=== PATIENT | male | born 1935 | race Caucasian/White ===

== ENCOUNTER 2016-11-16 09:45 | Emergency (ER) | payer BC, OTHER ==
[~2016-11-16] VITALS: Ht 177.8 cm; Wt 54.4 kg
[~2016-11-16 09:45] MED LIST: ASPI-482 PO; ESOM40CA PO; FERR-26 PO; INSU100C SQ; INSU100I27 SQ; INSU100V13 SQ; LEVO25TA4 PO; LITH150C PO; LITH300T3 PO; METF500T4 PO; OXCA300T PO; OXCA600T PO; SIMV40TA3 PO
--- NOTE | 2016-11-16 10:18 | PHYS DOC ---
Past Medical History Past Medical History: Bipolar, Diabetes-Type II, GERD, High Cholesterol, Hypertension Additional Past Medical Histor: osteoarthritis, iron deficiency Past Surgical History: No Surgical History Additional Information: Quit smoking 20 years ago Alcohol Use: None Drug Use: None Adult General Chief Complaint Chief Complaint: LACERATION/AVULSION HPI HPI Patient is a 81 year old male who lives had [facility] with a history of dementia, hypertension, and diabetes presents to the ED complaining of head injury times one hour ago. Patient was sitting and eating breakfast with his legs crossed and states one of his legs fell asleep and when he went to stand up he fell and hit the ground. Witnessed fall by staff. Patient does not take any blood thinners. Patient and state he has had previous episodes of times that his leg has fallen asleep in the past and he has fallen. Denies symptoms prior to fall, LOC, vision changes, nausea/ vomiting, chest pain, dizziness, weakness, syncope, or fever. Review of Systems Review of Systems Constitutional: Denies fever or chills [] Eyes: Denies change in visual acuity, redness, or eye pain [] HENT: Denies nasal congestion or sore throat [] Respiratory: Denies cough or shortness of breath [] Cardiovascular: No additional information not addressed in HPI [] GI: Denies abdominal pain, nausea, vomiting, bloody stools or diarrhea [] : Denies dysuria or hematuria [] Musculoskeletal: Denies back pain or joint pain [] Integument: Denies rash or skin lesions [] Neurologic: Denies headache, focal weakness or sensory changes [] Endocrine: Denies polyuria or polydipsia [] Current Medications Current Medications Current Medications Medications (Trade) Dose Ordered Sig/[place] Start Time Stop Time Status Last Admin Dose Admin Diphtheria/ Tetanus/Acell Pertussis (Boostrix) 0.5 ml ONCE ONCE 11/16/16 10:30 11/16/16 10:31 DC Lidocaine HCl 20 ml 1X ONCE 11/16/16 10:30 11/16/16 10:31 DC 11/16/16 10:28 20 ML Allergies Allergies Allergies Coded Allergies Type Severity Reaction Last Updated Verified No Known Drug Allergies 11/18/15 No Physical Exam Physical Exam Constitutional: Well developed, well nourished, no acute distress, non-toxic appearance. [] HENT: 3 CM LACERATION TO LEFT PERIORBITAL REGION. Normocephalic, bilateral external ears normal, oropharynx moist, no oral exudates, nose normal. [] Eyes: PERRLA, EOMI, conjunctiva normal, no discharge. [] Neck: Normal range of motion, no tenderness, supple, no stridor. [] Cardiovascular:Heart rate regular rhythm, no murmur [] Lungs & Thorax: Bilateral breath sounds clear to auscultation [] Abdomen: Bowel sounds normal, soft, no tenderness, no masses, no pulsatile masses. [] Skin: Warm, dry, no erythema, no rash. [] Back: No tenderness, no CVA tenderness. [] Extremities: No tenderness, no cyanosis, no clubbing, ROM intact, no edema. [] Neurologic: Alert and oriented X 3, normal motor function, normal sensory function, no focal deficits noted. [] Psychologic: Affect normal, judgement normal, mood normal. [] Current Patient Data Vital Signs Vital Signs Date Time Temp Pulse Resp B/P (MAP) Pulse Ox O2 Delivery O2 Flow Rate FiO2 11/16/16 14:18 50 18 106/33 (57) 97 Room Air 11/16/16 09:56 97.6 97.6 Lab Values Laboratory Tests Test 11/16/16 10:55 White Blood Count 6.3 x10^3/uL (4.0-11.0) Red Blood Count 3.51 x10^6/uL (4.30-5.70) L Hemoglobin 11.3 g/dL (13.0-17.5) L Hematocrit 33.3 % (39.0-53.0) L Mean Corpuscular Volume 95 fL (79-100) Mean Corpuscular Hemoglobin 32 pg (25-35) Mean Corpuscular Hemoglobin Concent 34 g/dL (31-37) Red Cell Distribution Width 13.3 % (11.5-14.5) Platelet Count 234 x10^3/uL (140-400) Sodium Level 142 mmol/L (136-145) Potassium Level 3.7 mmol/L (3.5-5.1) Chloride Level 105 mmol/L (98-107) Carbon Dioxide Level 29 mmol/L (21-32) Anion Gap 8 (6-14) Blood Urea Nitrogen 21 mg/dL (8-26) Creatinine 1.0 mg/dL (0.7-1.3) Estimated GFR (Cockcroft-Gault) 71.9 BUN/Creatinine Ratio 21 (6-20) H Glucose Level 132 mg/dL (70-99) H Calcium Level 9.6 mg/dL (8.5-10.1) Total Bilirubin 0.4 mg/dL (0.2-1.0) Aspartate Amino Transferase (AST) 11 U/L (15-37) L Alanine Aminotransferase (ALT) 12 U/L (16-63) L Alkaline Phosphatase 47 U/L (46-116) Total Protein 6.7 g/dL (6.4-8.2) Albumin 3.5 g/dL (3.4-5.0) Albumin/Globulin Ratio 1.1 (1.0-1.7) Laboratory Tests 11/16/16 10:55 Laboratory Tests 11/16/16 10:55 EKG EKG [] Radiology/Procedures Radiology/Procedures PROCEDURE: CT HEAD AND CERVICAL SPINE WO CT head Indication: Head injury, neck pain status post fall Technique: CT head without IV contrast Comparison: CT head from 11/18/2015 Findings: No pathologic extra-axial or intra-axial fluid collection. Mild diffuse cerebral and cerebellar atrophy with ex vacuo dilation of the ventricles. No acute intracranial bleed. No focal loss of tapia-white differentiation. Mild bilateral cavernous carotid artery calcifications. No calvarial fractures. Focus of air is seen within the anterior aspect of the left eye. There is complete opacification of the right frontal sinus. Patchy opacification of the ethmoid air cells. There is partial opacification of the left mastoid air cells. Soft tissue swelling noted with mild emphysema along the lateral aspect of the left orbit. Impression: 1. No acute intracranial findings. 2. Small focus of air within anterior aspect of the left eye. Clinically correlate. 3. Soft tissue swelling with emphysema lateral to the left orbit superior to zygoma. 4. Findings of chronic sinus disease involving right frontal sinuses, ethmoid air cells and left mastoid air cells. CT cervical spine Indication: As above. Technique: CT of the cervical spine without IV contrast with multi planar reformats. Comparison: None Findings: Cervical spine demonstrates straightening. This could be due to muscle spasm or positioning. No compression deformities. Predental interval is preserved. No acute fractures. Multilevel intervertebral disc space narrowing with large anterior osteophytes compatible with advanced degenerative disc disease. The facet joints are in normal anatomic alignment with mild to moderate facet arthropathy. The prevertebral soft tissues are within normal limits. No bulky cervical adenopathy. Mild atherosclerotic disease at the carotid bulb bilaterally. Visualized lung bases are clear. Impression: 1. No acute fractures of the cervical spine. 2. Multilevel degenerative disc disease with facet arthropathy.[] PROCEDURE: CT MAXILLOFACIAL WO CONTRAST Maxillofacial CT Indication: Trauma Technique: CT of the maxillofacial bones without IV contrast with multiplanar reformats. Comparison: None Findings: No acute fractures. Soft tissue swelling with emphysema is seen superior to the left side,. Small amount of air is seen in the superior aspect of the left globe. There is no preseptal or postseptal soft tissue swelling or hematoma. The temporomandibular joints and mandible are within normal limits. There is complete opacification of the right frontal sinus. Patchy opacification of the ethmoid air cells. Mild periosteal thickening noted of the inferior aspect of the right maxillary sinus. Mild bilateral atherosclerotic disease of the cavernous carotid arteries. Left revision of the anterior nasal septum. Impression: 1. No acute fractures. 2. Soft tissue swelling and emphysema superior to the left side zygoma. 3. Small amount of air within superior aspect of the left globe. Clinically correlate. 4. Chronic sinus disease involving the right frontal sinuses and ethmoid air cells. Course & Med Decision Making Course & Med Decision Making Pertinent Labs and Imaging studies reviewed. (See chart for details) []Laceration repaired. No complications. Patient's tetanus up-to-date. Discussed labs and imaging with patient. Patient's pain improved. Vital stable, no acute distress. Discussed case with on-call ophthalmology, Dr. Gonzales. States he will follow-up outpatient with Mr. Ingram. States he goes to [facility] where patient lives. No fracture on CT or signs of globe rupture on exam. No pain on exam and FROM/EOMI. Discussed follow-up for wound reevaluation and couple days and wound care outpatient. Discussed reasons to return to the ED with electromechanical engineer and family. Patient, family and electromechanical engineer understand and agree with plan. Dragon Disclaimer Dragon Disclaimer This electronic medical record was generated, in whole or in part, using a voice recognition dictation system. Departure Departure Impression: Primary Impression: Closed head injury Additional Impression: Facial laceration Disposition: 01 HOME, SELF-CARE Condition: IMPROVED Referrals: DIONNE GREGORIO MD (PCP) DOROTEO GONZALES MD Patient Instructions: Facial Laceration, Head Injury, Adult Laceration/Wound Repair Laceration/Wound Repair : Wound Location: face (left supra-zygoma) Wound's Depth, Shape: superficial Wound Length (cm): 3 Betadine Prep?: Yes Anesthesia: 1% Lidocaine Volume Anesthetic (ccs): 5 Wound Repaired With: sutures Suture Size/Type: 5:0, nylon Number of Sutures: 7 Sterile Dressing Applied?: Yes Progress Laceration repaired, No complications. Problem Qualifiers LUZ HUSAIN Nov 16, 2016 10:18
[2016-11-16] MEDS ORDERED: DIPHTH,PERTUSS(ACELL),TET TOX 0.5 ML DISP.SYRIN. VAX IM ONE (10:30)
[2016-11-16] MEDS ORDERED: LIDOCAINE 2% 20 ML VIAL. IJ ONE (10:30)
[2016-11-16 11:09] LABS: HEMATOCRIT 33.3 % (39.0-53.0); HEMOGLOBIN 11.3 g/dL (13.0-17.5); RED BLOOD COUNT 3.51 x10^6/uL (4.30-5.70); RED CELL DISTRIBUTION WIDTH 13.3 % (11.5-14.5); WHITE BLOOD COUNT 6.3 x10^3/uL (4.0-11.0)
[2016-11-16 11:20] LABS: CALCIUM 9.6 mg/dL (8.5-10.1); GFR 71.9; POTASSIUM 3.7 mmol/L (3.5-5.1)
[2016-11-16 11:26] LABS: ALBUMIN 3.5 g/dL (3.4-5.0); ALBUMIN/GLOBULIN RATIO 1.1 (1.0-1.7); TOTAL BILIRUBIN 0.4 mg/dL (0.2-1.0); TOTAL PROTEIN 6.7 g/dL (6.4-8.2)
--- NOTE | 2016-11-16 12:14 | RAD ---
CT head Indication: Head injury, neck pain status post fall Technique: CT head without IV contrast Comparison: CT head from 11/18/2015 Findings: No pathologic extra-axial or intra-axial fluid collection. Mild diffuse cerebral and cerebellar atrophy with ex vacuo dilation of the ventricles. No acute intracranial bleed. No focal loss of tapia-white differentiation. Mild bilateral cavernous carotid artery calcifications. No calvarial fractures. Focus of air is seen within the anterior aspect of the left eye. There is complete opacification of the right frontal sinus. Patchy opacification of the ethmoid air cells. There is partial opacification of the left mastoid air cells. Soft tissue swelling noted with mild emphysema along the lateral aspect of the left orbit. Impression: 1. No acute intracranial findings. 2. Small focus of air within anterior aspect of the left eye. Clinically correlate. 3. Soft tissue swelling with emphysema lateral to the left orbit superior to zygoma. 4. Findings of chronic sinus disease involving right frontal sinuses, ethmoid air cells and left mastoid air cells. CT cervical spine Indication: As above. Technique: CT of the cervical spine without IV contrast with multi planar reformats. Comparison: None Findings: Cervical spine demonstrates straightening. This could be due to muscle spasm or positioning. No compression deformities. Predental interval is preserved. No acute fractures. Multilevel intervertebral disc space narrowing with large anterior osteophytes compatible with advanced degenerative disc disease. The facet joints are in normal anatomic alignment with mild to moderate facet arthropathy. The prevertebral soft tissues are within normal limits. No bulky cervical adenopathy. Mild atherosclerotic disease at the carotid bulb bilaterally. Visualized lung bases are clear. Impression: 1. No acute fractures of the cervical spine. 2. Multilevel degenerative disc disease with facet arthropathy. PQRS Compliance Statement: One or more of the following individualized dose reduction techniques were utilized for this examination: 1. Automated exposure control 2. Adjustment of the mA and/or kV according to patient size 3. Use of iterative reconstruction technique
--- NOTE | 2016-11-16 12:29 | RAD ---
Maxillofacial CT Indication: Trauma Technique: CT of the maxillofacial bones without IV contrast with multiplanar reformats. Comparison: None Findings: No acute fractures. Soft tissue swelling with emphysema is seen superior to the left side,. Small amount of air is seen in the superior aspect of the left globe. There is no preseptal or postseptal soft tissue swelling or hematoma. The temporomandibular joints and mandible are within normal limits. There is complete opacification of the right frontal sinus. Patchy opacification of the ethmoid air cells. Mild periosteal thickening noted of the inferior aspect of the right maxillary sinus. Mild bilateral atherosclerotic disease of the cavernous carotid arteries. Left revision of the anterior nasal septum. Impression: 1. No acute fractures. 2. Soft tissue swelling and emphysema superior to the left side zygoma. 3. Small amount of air within superior aspect of the left globe. Clinically correlate. 4. Chronic sinus disease involving the right frontal sinuses and ethmoid air cells. PQRS Compliance Statement: One or more of the following individualized dose reduction techniques were utilized for this examination: 1. Automated exposure control 2. Adjustment of the mA and/or kV according to patient size 3. Use of iterative reconstruction technique
[2016-11-16 14:18] VITALS: BP 106/33
== END 2016-11-16 14:33 | disposition home or self-care (01) ==
LOC: ER 09:45
DX: S01.112A Laceration without foreign body of left eyelid and periocular area, initial encounter (principal); S09.90XA Unspecified injury of head, initial encounter; E11.9 Type 2 diabetes mellitus without complications; K21.9 Gastro-esophageal reflux disease without esophagitis; I10 Essential (primary) hypertension; E78.5 Hyperlipidemia, unspecified; M19.90 Unspecified osteoarthritis, unspecified site; W18.39XA Other fall on same level, initial encounter; Y93.89 Activity, other specified; Y92.89 Other specified places as the place of occurrence of the external cause; Y99.8 Other external cause status
CPT/HCPCS: 12013; 36415; 70450; 70486; 72125; 80053; 85027; 99285-25; J2001